=== PATIENT | female | born 1985 | race Caucasian/White ===

== ENCOUNTER → 2018-06-19 | Emergency (ER) | payer BC ==
[~2018-06-19] MED LIST: ACETAMINOPHEN 500 MG TABLET (FP) PO ONE
--- NOTE | 2018-06-19 17:18 | PDOC ---
Rapid Medical Evaluation Time Seen by Provider: 06/19/18 17:13 Medical Evaluation: Allergies Allergy/AdvReac Type Severity Reaction Status Date / Time Penicillins Allergy Rash Verified 09/22/14 08:58 SHRIMP Allergy Rash Uncoded 09/22/14 08:58 06/19/18 17:13 I have performed a brief in-person evaluation of this patient. The patient presents with a chief complaint of: Currently on menses (06/16/17) and c/o menorrhagia. Used 7 pads in the past 24 hrs. C/o weakness, now. Gets nl monthly menses. No h/o fibroids. S/p tubal ligation Pertinent physical exam findings:stable I have ordered the following:cbc The patient will proceed to the ED for further evaluation. Discharge Disposition - Diagnosis Menorrhagia Qualifiers: Menorrahagia type: with onset of menstrual periods Qualified Code(s): N92.2 - Excessive menstruation at puberty - Referrals Referrals: Mayra Ball MD [Primary Care Provider] - - Patient Instructions - Post Discharge Activity
[2018-06-19 17:20] VITALS: TEMP 98.9; BMI 24.1
--- NOTE | 2018-06-19 17:56 | PDOC ---
History of Present Illness - General Chief Complaint: Vaginal Bleeding Stated Complaint: Vaginal Bleeding Time Seen by Provider: 06/19/18 17:13 History Source: Patient, Spouse ( present at bedside) Exam Limitations: Language Barrier - History of Present Illness Initial Comments: HPI: 32 y/o female presenting to [facility] ER complaining of heavy vaginal bleeding and suprapubic cramping. Bleeding and pain started on Friday (06/16/2018). Acutely worsening this morning around 9am. Reports soaking through approx. 7-8 pads since this time. reports pt looks pale. Lower abdominal cramping is intermittent. Has improved with Tylenol, last taken early this morning. Denies acute SOB, chest pain, Called OBGYN, who instructed pt to report to the ED. Pt reports cycling regularly. LMP was just after Thanksgiving. S/p BTL three years ago. Endorses increasing dyspareunia recently. No history of ovarian or uterine pathology. Last PAP smear 6 months ago. Reportedly normal. A1, last 3 years ago. Pt is predominantly Mauritian speaking. Able to speak some Slovak. also provided additional interpretation at pts request. OBGYN: Dr. Curry [facility] Hx: - Pt denies past medical history. Denies prescription medications. Surgical Hx: - BTL, 2014 Past History - Past Medical History Allergies/Adverse Reactions: Allergies Allergy/AdvReac Type Severity Reaction Status Date / Time Penicillins Allergy Rash Verified 06/19/18 17:16 SHRIMP Allergy Rash Uncoded 06/19/18 17:16 Home Medications: Ambulatory Orders Vitamins (Sjr) - 1 tab PO DAILY 09/22/14 Asthma: No Cancer: No Cardiac Disorders: No COPD: No Diabetes: No HTN: No Seizures: No Thyroid Disease: No Other medical history: DENIES - Reproductive History (#): 3 Para: 2 - Suicide/Smoking/Psychosocial Hx Smoking Status: No Smoking History: Never smoked Have you smoked in the past 12 months: No Number of Cigarettes Smoked Daily: 0 Hx Alcohol Use: No Drug/Substance Use Hx: No Hx Substance Use Treatment: No Review of Systems - Review of Systems Able to Perform ROS?: Yes Comments:: In addition to that documented in the HPI above, the additional ROS was obtained : Constitutional: Denies fevers or chills Eyes: Denies vision changes ENMT: Denies sore throat CV: Denies acute chest pain Resp: Denies acute SOB GI: Denies vomiting or diarrhea : Denies painful urination. Vaginal bleeding, per HPI MSK: Denies recent trauma Skin: Denies new rashes Neuro: Denies new numbness or tingling or weakness Endocrine: Denies polyuria Heme: Denies bleeding disorder *Physical Exam - Vital Signs Last Vital Signs Temp Pulse Resp BP Pulse Ox 98.9 F 72 19 114/67 99 06/19/18 17:16 06/19/18 17:16 06/19/18 17:16 06/19/18 17:16 06/19/18 17:16 - Physical Exam Comments: Constitutional: Well-developed, well-nourished female in no acute distress or obvious discomfort. Found sitting upright on edge of PATIENT SERVICES ASSISTANT table. Alert and oriented x4. Answered all questions appropriately and completely. Speech was non -labored, non-pressured. Head: Normocephalic. No obvious external signs of trauma. Eyes: Sclerae white. Conjunctiva pink, moist, and not injected. EARS: Hearing grossly intact. NOSE: No nasal discharge. Neck: Supple, trachea is midline. Cardiovascular: Regular rate and regular rhythm. No murmur, rubs, clicks, or gallops. Peripheral pulses: Radial pulses full. Respiratory: Breathing unlabored. Equal chest rise and fall. Clear to auscultation bilaterally. No stridor, no wheezing, no rhonchi. Gastrointestinal: abdomen is tender in suprapubic region without rebound, guarding, or grimace. Globally, the abdomen is soft and non-distended. No pulsatile masses. No overlying skin lesions or obvious signs of trauma. Neuro: Alert and oriented. Moving all four extremities spontaneously. Skin: Warm, dry, and intact. Psych: Affect: appropriate. Mood: normal. Female Pelvic: External genitalia unremarkable. Speculum exam with approx. 3- 5cc of blood in vaginal vault. Vaginal wall mucosa is unremarkable. Cervix visualized and is unremarkable (closed in appearance without any protruding material). Bimanual exam without cervical motion tenderness, adnexal tenderness , or any masses appreciated. RN chaperoned exam. Moderate Sedation - Procedure Monitoring Vital Signs: Procedure Monitoring Vital Signs Temperature 98.9 F 06/19/18 17:16 Pulse Rate 72 06/19/18 17:16 Respiratory Rate 19 06/19/18 17:16 Blood Pressure 114/67 06/19/18 17:16 O2 Sat by Pulse Oximetry (%) 99 06/19/18 17:16 ED Treatment Course - LABORATORY CBC & Chemistry Diagram: 06/19/18 17:45 Medical Decision Making - Medical Decision Making *Reviewed vital signs, nursing notes, and prior visit documentation (if available). 32 y/o female complaining of vaginal bleeding and suprapubic tenderness worsening since Friday. Dyspareunia. BTL three years ago. Vitals unremarkable for hypotension or tachycardia. Physical exam as described above. Suspect uterine fibroids vs menorrhagia. Will obtain CBC to evaluate H/H. Low suspicion for anemia. Will obtain U/S to evaluate for uterine pathology. Will obtain UA and urine culture to evaluate for possible hemorrhagic cystitis (low suspicion) . Ordered Tylenol for symptom relief. CBC unremarkable for anemia. Serum negative. Low suspicion for ectopic. UA unremarkable for pyuria, leukocyte esterase, or nitrites. Low suspicion for UTI. Culture pending. U/S unremarkable for leiomyoma. Endometrial thickness normal. Suspect pain and bleeding is menorrhagia. Pt reassessed. Reports the bleeding has improved. Declined Tylenol dosing stating she has no pain. Repeat vitals unremarkable for hypotension or tachycardia; unchanged from arrival. Pt stable for discharge. Discussed imaging and laboratory results with pt. Answered all questions. Provided return precautions. Pt expressed verbal understanding and agreement with plan to discharge home with outpatient follow up. *DC/Admit/Observation/Transfer Diagnosis at time of Disposition: Menorrhagia Qualifiers: Menorrahagia type: with onset of menstrual periods Qualified Code(s): N92.2 - Excessive menstruation at puberty - Discharge Dispostion Disposition: HOME Condition at time of disposition: Good Decision to Admit order: No - Referrals Referrals: Mayra Ball MD [Primary Care Provider] - Yesenia Curry MD [Staff Physician] - - Patient Instructions Printed Discharge Instructions: DI for Dysmenorrhea Additional Instructions: You were seen today for vaginal bleeding and lower abdominal pain. Your blood and urine tests was normal. The ultrasound did not show anything to cause abnormal bleeding. The symptoms will likely resolve in the next few days. You can take over the counter Tylenol or Advil as needed for pain. Take as directed on the package insert. Do not exceed the recommended dosage. Follow up with your primary care doctor or your OBGYN within the next 3-4 days to make sure you are healing. You will need to call to make an appointment. Go to the nearest emergency department if your condition worsens or you feel like you need additional emergency evaluation. Hoy te vieron por sangrado vaginal y dolor abdominal inferior. Yasemin anlisis de shaneka y orina fueron normales. El ultrasonido no mostr nada que causara sangrado anormal. Los sntomas probablemente se resolvern en los prximos wright. Puede modesto el contador de Tylenol o Advil segn sea necesario para el dolor. Modesto adolfo se indica en el prospecto. No exceda la dosis recomendada. Heydi un seguimiento con jaimes mdico de atencin primaria o jaimes gineclogo dentro de los prximos 3 a 4 wright para asegurarse de que est sanando. Tendr que llamar para hacer adilene hakeem. Vaya al departamento de emergencias ms cercano si jaimes afeccin empeora o si griffin que necesita adilene evaluacin de emergencia adicional. Print Language: [id number] - Post Discharge Activity Forms/Work/School Notes: Back to Work
[2018-06-19 18:23] LABS: BASO % 0.6 % (0-2.0); EOS % 8.1 % (0-4.5); HEMATOCRIT 35.3 % (32.4-45.2); HEMOGLOBIN 12.5 GM/dL (10.7-15.3); LYMPH % 37.4 % (8-40); MCH 32.8 pg (25.7-33.7); MCHC 35.4 g/dl (32.0-36.0); MEAN CELL VOLUME 92.5 fl (80-96); MEAN PLT VOLUME 10.2 fl (7.5-11.1); MONO % 6.2 % (3.8-10.2); NEUT % 47.7 % (42.8-82.8); PLATELET COUNT 183 K/MM3 (134-434); RBC 3.81 M/mm3 (3.60-5.2); RDW 12.8 % (11.6-15.6); WHITE BLOOD COUNT 3.9 K/mm3 (4.0-10.0)
--- NOTE | 2018-06-19 18:54 | PDOC ---
Attending Attestation - HPI HPI: 06/19/18 18:57 The patient is a 32 year old female, with no significant past medical history, who presents to the emergency department with heavy vaginal bleeding since Friday. The patients reports his appears pale today. The patient denies chest pain, shortness of breath, headache and dizziness. The patient denies fever, chills, nausea, vomit, diarrhea and constipation. The patient denies dysuria, frequency, urgency and hematuria. Allergies: penicillins Past surgical history: , bilateral tubal ligation Social history: denies toxic habits Documentation prepared by Emelina Veras, acting as medical administrative technician for Aldo Arevalo MD <Emelina Veras - Last Filed: 06/19/18 18:57> - Resident Resident Name: James Gold - ED Attending Attestation I have performed the following: I have examined & evaluated the patient, The case was reviewed & discussed with the resident, I agree w/resident's findings & plan, Exceptions are as noted - Physicial Exam PE: 06/19/18 19:22 Patient is awake and alert, well-nourished, in no distress; patient is normotensive with a heart rate of 72. Normocephalic, atraumatic PERRLA, EOMI, conjunctiva are pink CTA RRR - Medical Decision Making 06/19/18 19:23 32-year-old female presents with signs and symptoms of menorrhagia. Patient's vital signs are noted to be normal. CBC reveals H&H of 12.5 and 35.3 respectively. Patient's serum test is negative. Will obtain transvaginal ultrasound to evaluate for Leomyomas. Likely discharge. <Aldo Arevalo - Last Filed: 06/19/18 19:24>
[2018-06-19 20:45] LABS: URINE APPEARANCE CLEAR; URINE BILIRUBIN NEGATIVE (<2.0 mg/dL); URINE COLOR YELLOW; URINE GLUCOSE (UA) NEGATIVE (NEGATIVE); URINE KETONE NEGATIVE (NEGATIVE); URINE LEUK ESTERASE NEGATIVE (NEGATIVE); URINE NITRITE NEGATIVE (NEGATIVE); URINE PROTEIN NEGATIVE (NEGATIVE); URINE UROBILINOGEN NEGATIVE mg/dL (0.2-1.0)
[2018-06-19 20:57] LABS: EPI CELLS RARE /HPF (FEW); URINE MUCUS RARE
[2018-06-19 21:46] VITALS: BP 109/71; PULSE 69
== END | disposition home or self-care (01) ==
LOC: JER 16:31
DX: N92.0 Excessive and frequent menstruation with regular cycle (principal)
CPT/HCPCS: 36415; 76830-TC; 81003; 81015; 84703; 85025; 87086; 99283-25